=== PATIENT | female | born 1950 | race Caucasian/White ===

== ENCOUNTER 2021-08-08 01:17 | Emergency (ER) | payer MEDICARE, OTHER, SELFPAY ==
[2021-08-08] VITALS (15 sets, daily range): BP systolic 126–188; BP diastolic 58–105; PULSE 60–107; RESP 20–34; TEMP 36.1; O2SAT 88–97
--- NOTE | 2021-08-08 01:56 | DI.RAD.S_ITS ---
PROCEDURE: XR CHEST 1V INDICATIONS: chest pain TECHNIQUE: One view of the chest was acquired. COMPARISON: [facility], , CHEST 1 VIEW, 01/28/2015, 20:47. FINDINGS: Surgical changes and devices: Left pacemaker with right atrial and right ventricular leads. Lungs and pleura: Mild streaky opacity at the right lung base. Low lung volumes. No pleural effusions or pneumothorax. Mediastinum: Mediastinal contours appear similar to before. Asymmetric elevation of the right hemidiaphragm. Heart size is normal. Bones and chest wall: No suspicious bony lesions. Overlying soft tissues appear unremarkable. IMPRESSION: Streaky opacity at the right lung base. Favor atelectasis over pneumonia. No significant discrepancy with the overnight preliminary report. Dictated by: Jose Guadalupe Trent M.D. on 08/08/2021 at 7:39 Approved by: Jose Guadalupe Trent M.D. on 08/08/2021 at 7:40
[2021-08-08 02:07] LABS: Alanine Aminotransferase 26 IU/L (<35); Albumin 3.5 g/dL (3.5-5.0); Albumin Globulin Ratio 1.1 (1.0-2.8); Alkaline Phosphatase 402 U/L (38-126); Aspartate Aminotransferase 128 IU/L (14-36); BUN Creatinine Ratio 30.2 (6-22); Bilirubin Total 1.2 mg/dL (0.2-1.3); Blood Urea Nitrogen 19 mg/dL (7-17); Calcium 12.6 mg/dL (8.4-10.2); Carbon Dioxide 31 mmol/L (22-32); Chloride 99 mmol/L (98-107); Creatine Kinase < 20 U/L (30-135); Estimated Glomerular Filt Rate > 60.0 mL/min (>60); Globulin 3.1 g/dL (1.7-4.1); Glucose 118 mg/dL (80-110); HEMOLYSIS < 15 (0-50); Lipase 33 U/L (23-300); Sodium 135 mmol/L (137-145); Total Protein 6.6 g/dL (6.3-8.2)
[2021-08-08 02:09] LABS: Add Manual Diff / Slide Review NO; Basophils Absolute Auto 0 /uL (0-100); Basophils Percent Auto 0.4 % (0-2); Eosinophils Absolute Auto 0 /uL (0-450); Eosinophils Percent Auto 0.1 % (2-4); Hematocrit 38.1 % (36-46); Hemoglobin 12.3 g/dL (12.0-16.0); Lymphocytes Absolute Auto 1400 /uL (1100-4500); Lymphocytes Percent Auto 12.2 % (25-40); Mean Corpuscular HGB Conc 32.4 % (30-36); Mean Corpuscular Hemoglobin 29.3 PG (26-34); Mean Corpuscular Volume 90.5 fL (80-100); Monocytes Absolute Auto 1200 /uL (0-900); Monocytes Percent Auto 10.2 % (3-14); Neutrophils Absolute Auto 8900 /uL (1500-7000); Neutrophils Percent Auto 77.1 % (50-75); Platelet Count 215 X10^3/uL (150-400); Red Blood Cell Count 4.21 X10^6/uL (4.0-5.2); Red Cell Distribution Width 13.7 % (11.6-14.8); White Blood Cell Count 11.5 X10^3/uL (4.5-11.0)
[2021-08-08 02:11] LABS: D Dimer 1016 ng/mL (<230)
[2021-08-08 02:19] LABS: Troponin I 0.014 ng/mL (0.01-0.034)
[2021-08-08 02:24] LABS: NT-proBNP (BNP-Adult 18+) 1360 pg/mL (<125)
--- NOTE | 2021-08-08 02:27 | DI.CT.S_ITS ---
PROCEDURE: CT ANGIO CHEST PE PROTOCOL INDICATIONS: right sided pain + dimer TECHNIQUE: After the administration of intravenous contrast, 2 mm thick sections acquired from the pulmonary apices to the posterior costophrenic angles. 3-dimensional maximum intensity projection (MIP) coronal and sagittal reformats were then acquired through the thorax. For radiation dose reduction, the following was used: automated exposure control, adjustment of mA and/or kV according to patient size. COMPARISON: [facility], CT, CT ABDOMEN PELVIS W CON, 08/08/2021, 2:37. [facility], CR, XR CHEST 1V, 08/08/2021, 2:03. [facility], CT, CT ANGIO CHEST, 04/03/2020, 10:48. FINDINGS: Image quality: Excellent. Pulmonary arteries: Pulmonary arteries are normal in size, and demonstrate no intraluminal filling defects to suggest central pulmonary embolism. Lungs and pleura: Mild atelectasis at the right lung base. No pulmonary mass is identified. No pleural effusions or pneumothorax. Central and peripheral airways are patent. Mediastinum: Left pacemaker with right atrial and right ventricular leads.Heart size is normal, without pericardial effusion. Coronary artery calcifications. No mediastinal or hilar adenopathy. Thoracic aorta is normal in caliber and enhancement. Esophagus is normal in caliber, without hiatal hernia. Bones and chest wall: No suspicious bony lesions identified. Mild scoliosis. Ribs and thoracic spine appear intact throughout. Right thyroid calcification. No axillary or supraclavicular adenopathy. Abdomen: Numerous ill-defined hypodense lesions in the liver. Suspect metastatic disease. Trace free fluid adjacent to the liver. Please see separately dictated same day CT abdomen and pelvis. IMPRESSION: 1. No pulmonary embolism. 2. Mild atelectasis at the right lung base. 3. Numerous ill-defined hepatic lesion suspicious for metastatic disease. Please see separately dictated same day CT abdomen and pelvis. No significant discrepancy with the overnight preliminary interpretation. Dictated by: Jose Guadalupe Trent M.D. on 08/08/2021 at 7:41 Approved by: Jose Guadalupe Trent M.D. on 08/08/2021 at 7:49
--- NOTE | 2021-08-08 02:27 | DI.CT.S_ITS ---
PROCEDURE: CT ABDOMEN PELVIS W CON INDICATIONS: right upper quad pain TECHNIQUE: After the administration of IV contrast, axial sections were acquired from the lung bases to the pubic symphysis. Coronal and sagittal reformats were performed. For radiation dose reduction, the following was used: automated exposure control, adjustment of mA and/or kV according to patient size. COMPARISON: [facility], CT, CT ANGIO CHEST PE PROTOCOL, 08/08/2021, 2:37. FINDINGS: Image quality: Excellent. Lung bases: There is linear atelectasis in the lung bases. Heart: No significant findings. ABDOMEN: Liver: The liver is enlarged with innumerable hypoattenuating peripherally enhancing mass lesions demonstrated throughout the right and left lobes involving all segments. There are associated areas of confluence anteriorly within the right lobe. A sales representative aircraft mass posteriorly in the right hepatic dome within segment 7 on series 2, image 15 measures up to 3.7 x 3.3 cm in transverse dimension. The liver is nodular in contour suggestive of cirrhosis. Gallbladder: Gallbladder demonstrates no calcified gallstones or wall thickening. Biliary ducts: Unremarkable. Pancreas: Unremarkable. Spleen: There is a wedge-shaped hypodensity anteriorly within the spleen measuring up to 2.7 cm. Adrenal Glands: Unremarkable. Kidneys and Ureters: Kidneys demonstrate no hydronephrosis. Stomach and Bowel: Stomach, small bowel loops, and colon are normal in caliber and wall thickness. Colonic diverticulosis is present without acute diverticulitis. Peritoneum: There is a small amount of free fluid in the abdomen and pelvis. No free air. Ventral Wall: No hernia. Abdominal Nodes: There are enlarged lymph nodes within the upper abdomen including enlarged jeremi hepatis nodes measuring up to approximately 1.4 cm on series 2, image 34. A prominent portacaval node measures up to 0.9 cm in short axis on series 2, image 39. There also prominent left para-aortic nodes in the upper abdomen measuring up to 0.8 cm in short axis on series 2, image 37. Vessels: Aorta and inferior vena cava are normal in size. PELVIS: Pelvic Organs: Unremarkable. Bladder: Unremarkable. Pelvic Nodes: No enlarged lymph nodes. Miscellaneous: No inguinal hernias are seen. Bones: Unremarkable. Visualized osseous structures demonstrate no definite suspicious lesions. IMPRESSION: 1. Multiple peripherally enhancing hepatic mass lesions consistent with metastatic disease. The differential includes multifocal hepatocellular carcinoma but given the number of lesions, metastatic disease is favored. 2. Nodular hepatic contour suggestive of cirrhosis. 3. Small amount of free fluid in the abdomen and pelvis is nonspecific and may reflect ascites or reactive changes. 4. Wedge-shaped hypodensity anteriorly in the spleen may represent sequelae of a splenic infarct or a splenic mass. 5. Prominent upper abdominal lymph nodes including enlarged jeremi hepatis nodes are nonspecific but suspicious for metastatic disease. Concordant with preliminary interpretation. Dictated by: Deonte Yadav M.D. on 08/08/2021 at 9:39 Approved by: Deonte Yadav M.D. on 08/08/2021 at 9:51
[2021-08-08] MEDS: ONDANSETRON 4 MG/2 ML INJ IV (02:34)
[2021-08-08] MEDS: MORPHINE 2 MG/ML INJ IV (02:35)
[2021-08-08 02:54] LABS: COVID19 -Nasal RAPID Negative (Negative)
--- NOTE | 2021-08-08 03:03 | PC.NURSE ---
Her oxygen saturation dropped into the upper 80's,o2 via nasal cannula applied at 2 l flow and her sats increased to 95% after.
--- NOTE | 2021-08-08 04:27 | ED.ABDPAIN ---
HPI - Abdominal Pain General Chief Complaint: Abdominal Pain Stated Complaint: gallbladder pain x14 days Time Seen by Provider: 08/08/21 01:56 Source: patient Mode of arrival: Ambulatory Limitations: no limitations History of Present Illness HPI narrative: Patient is a 71-year-old female history of atrial fibrillation with pacemaker on Eliquis presenting today but 2 weeks ago rate I did pain. Pain seems to be getting worse. She is also having increasing shortness of breath with exertion, orthopnea and increasing swelling in her legs. She denies any fever or chills. No significant cough. No nausea or vomiting. The pain seems to be in her right ribs and right upper quadrant. She says it is just not getting any better. She denies any chest pain or palpitations. Related Data Home Medications Medication Instructions Recorded Confirmed CALCIUM/CHOLECALCIFEROL (CALCIUM 1 ctb PO QDAY #0 11/20/11 WITH D3 500MG/400UNITS) CONJUGATED ESTROGENS (PREMARIN) 0.3 mg PO QDAY #0 11/20/11 [CINNAMON + CHROMIUM] 1,000 mg PO BID #0 11/20/11 [VITAMIN B12] 1,000 mg PO QDAY #0 11/20/11 levothyroxine 100 mcg tablet 0.1 mg PO QDAY #0 11/20/11 (Synthroid) lisinopril 20 mg tablet 20 mg PO BID #0 11/20/11 loratadine 10 mg tablet (Claritin) 10 mg PO QDAY #0 11/20/11 acetaminophen 325 mg tablet 650 mg PO Q6HP PRN #0 02/02/17 metoprolol tartrate 25 mg tablet 25 mg PO QDAY #0 02/02/17 oxycodone-acetaminophen 5 mg-325 1 tab PO Q6HP PRN #0 02/02/17 mg tablet (Percocet) Previous Rx's Medication Instructions Recorded ibuprofen 600 mg tablet 600 mg PO Q6H PRN #60 tab 08/08/21 Allergies Allergy/AdvReac Type Severity Reaction Status Date / Time penicillin G Allergy Mild DIZZINESS/RASH-HAD Unverified 12/22/17 12:20 MANY YRS AGO morphine AdvReac Mild CAUSED N/V Unverified 12/22/17 12:20 Sulfa (Sulfonamide AdvReac Mild WASN'T Unverified 12/22/17 12:20 Antibiotics) EFFECTIVE EASILY NAUSEATED BY AdvReac Mild Uncoded 12/22/17 12:20 NARCOTICS LACTOSE INTOLERANT AdvReac Mild Uncoded 12/22/17 12:20 Review of Systems Review of Systems Narrative: GENERAL: Denies chills, fatigue, malaise, fever, sweats, travel HEENT: Denies sinus pain, ear pain, sore throat, difficulty swallowing, neck pain RESPIRATORY: See HPI CARDIOVASCULAR: Denies chest pain, palpitations, orthopnea, edema GASTROINTESTINAL: See HPI MUSCULOSKELETAL: Denies weakness, joint pain, or bony pain SKIN: No rash, no erythema, no pruritus NEUROLOGIC: Denies weakness, dizziness, headache, numbness, change in speech, confusion PSYCHIATRIC: No concerning psychosocial issues. 12 point review of systems is negative except for those stated above and HPI Patient History Social History Smoking Status: Former smoker Smoking Status: Former smoker alcohol intake frequency: a few times a month Substance Use Type: does not use Exam Initial Vital Signs Initial Vital Signs: Vital Signs Temperature 96.9 F L 08/08/21 01:20 Pulse Rate 85 08/08/21 01:20 Respiratory Rate 25 H 08/08/21 01:20 Blood Pressure 186/105 H 08/08/21 01:20 Pulse Oximetry 95 08/08/21 01:20 GENERAL: 71-year-old female appears quite weak also appears chronically ill in no acute distress. HEENT: Head atraumatic,EOMI, pupils reactive, face symmetric, moist mucous membranes CARDIOVASCULAR: Regular rate and rhythm without murmurs, rubs or gallops. RESPIRATORY: Breath sounds equal bilaterally, no wheezes rales or rhonchi. Slightly tender on right wrist ABDOMEN: Soft, tender epigastric area tender right upper quadrant negative [place] some EXTREMITIES: Normal range of motion, no clubbing . +2 pitting edema Neurovascularly intact NEUROLOGICAL: Alert and oriented x4.Normal gait and speech. SKIN: Warm, dry, no laceration, no petechiae, no rashes or lesions. Course Orders Ordered: ED Orders 08/08/21 01:35 Complete Blood Count AUTO DIFF Stat Comprehensive Metabolic Panel Stat DD [D Dimer] Stat Lipase Stat NT-proBNP (BNP-Adult 18+) Stat Troponin & CK Cardiac Panel Stat 08/08/21 01:56 XR chest 1V Stat EKG-12 Lead Stat 08/08/21 02:27 CT abdomen pelvis w con Stat CT angio chest PE protocol Stat 08/08/21 02:30 COVID19 -Nasal swab/Pre-Proc Stat Discontinued Medications Ketorolac Tromethamine (Ketorolac 30 Mg/Ml Vial) 15 mg IV NOW ONE Stop: 08/08/21 04:40 Last Admin: 08/08/21 04:52 Dose: 15 mg Documented by: CRISTOPHER Morphine Sulfate (Morphine 2 Mg/Ml Inj) 2 mg IV NOW ONE Stop: 08/08/21 02:29 Last Admin: 08/08/21 02:35 Dose: 2 mg Documented by: CRISTOPHER Ondansetron HCl (Ondansetron 4 Mg/2 Ml Inj) 4 mg IV NOW ONE Stop: 08/08/21 02:29 Last Admin: 08/08/21 02:34 Dose: 4 mg Documented by: CRISTOPHER Vital Signs Vital signs: Vital Signs - 8 hr 08/08/21 01:20 08/08/21 01:24 08/08/21 01:25 Temperature 96.9 F L Pulse Rate 85 107 H 94 H Respiratory Rate 25 H Blood Pressure 186/105 H 188/105 H Pulse Oximetry 95 95 96 08/08/21 01:30 08/08/21 01:31 08/08/21 02:00 Temperature Pulse Rate 89 90 92 H Respiratory Rate 29 H 34 H 33 H Blood Pressure 175/82 H Pulse Oximetry 96 96 94 08/08/21 02:01 08/08/21 02:30 08/08/21 02:31 Temperature Pulse Rate 95 H 87 87 Respiratory Rate 34 H 33 H 32 H Blood Pressure 175/94 H 169/70 H Pulse Oximetry 94 93 94 08/08/21 02:57 08/08/21 03:00 08/08/21 03:30 Temperature Pulse Rate 80 96 H 90 Respiratory Rate 33 H 32 H 26 H Blood Pressure 153/66 H 149/72 H Pulse Oximetry 89 L 88 L 95 08/08/21 03:31 08/08/21 04:00 08/08/21 04:30 Temperature Pulse Rate 89 78 60 Respiratory Rate 27 H 24 20 Blood Pressure 131/72 126/58 L 127/61 Pulse Oximetry 96 97 97 MDM - Abdominal Pain Lab Data Result diagrams: 08/08/21 01:35 08/08/21 01:35 Labs: Lab Results 11/08/08/21 08/08/21 Range/Units 01:35 01:35 01:35 WBC 11.5 H (4.5-11.0) X10^3/uL RBC 4.21 (4.0-5.2) X10^6/uL Hgb 12.3 (12.0-16.0) g/dL Hct 38.1 (36-46) % MCV 90.5 (80-100) fL MCH 29.3 (26-34) PG MCHC 32.4 (30-36) % RDW 13.7 (11.6-14.8) % Plt Count 215 (150-400) X10^3/uL Neut % (Auto) 77.1 H (50-75) % Lymph % (Auto) 12.2 L (25-40) % [place] % (Auto) 10.2 (3-14) % Eos % (Auto) 0.1 L (2-4) % Baso % (Auto) 0.4 (0-2) % Neut # (Auto) 8900 H (5640-7084) /uL Lymph # (Auto) 1400 (1074-8411) /uL [place] # (Auto) 1200 H (0-900) /uL Eos # (Auto) 0 (0-450) /uL Baso # (Auto) 0 (0-100) /uL D-Dimer 1016 H (<230) ng/mL Sodium 135 L (137-145) mmol/L Potassium 4.0 (3.4-5.1) mmol/L Chloride 99 (98-107) mmol/L Carbon Dioxide 31 (22-32) mmol/L BUN 19 H (7-17) mg/dL Creatinine 0.63 (0.52-1.04) mg/dL Estimated GFR > 60.0 (>60) mL/min BUN/Creatinine Ratio 30.2 H (6-22) Glucose 118 H (80-110) mg/dL Calcium 12.6 H (8.4-10.2) mg/dL Total Bilirubin 1.2 (0.2-1.3) mg/dL AST 128 H (14-36) IU/L ALT 26 (<35) IU/L Alkaline Phosphatase 402 H (38-126) U/L Total Creatine Kinase < 20 L (30-135) U/L CK-MB (CK-2) TNP CK-MB (CK-2) Rel Index TNP Troponin I 0.014 (0.01-0.034) ng/mL NT-Pro-B Natriuret Pep (<125) pg/mL Total Protein 6.6 (6.3-8.2) g/dL Albumin 3.5 (3.5-5.0) g/dL Globulin 3.1 (1.7-4.1) g/dL Albumin/Globulin Ratio 1.1 (1.0-2.8) Lipase 33 (23-300) U/L SARS-CoV-2 (PCR) (Negative) 08/08/21 08/08/21 Range/Units 01:35 02:30 WBC (4.5-11.0) X10^3/uL RBC (4.0-5.2) X10^6/uL Hgb (12.0-16.0) g/dL Hct (36-46) % MCV (80-100) fL MCH (26-34) PG MCHC (30-36) % RDW (11.6-14.8) % Plt Count (150-400) X10^3/uL Neut % (Auto) (50-75) % Lymph % (Auto) (25-40) % [place] % (Auto) (3-14) % Eos % (Auto) (2-4) % Baso % (Auto) (0-2) % Neut # (Auto) (8504-7679) /uL Lymph # (Auto) (4498-2129) /uL [place] # (Auto) (0-900) /uL Eos # (Auto) (0-450) /uL Baso # (Auto) (0-100) /uL D-Dimer (<230) ng/mL Sodium (137-145) mmol/L Potassium (3.4-5.1) mmol/L Chloride (98-107) mmol/L Carbon Dioxide (22-32) mmol/L BUN (7-17) mg/dL Creatinine (0.52-1.04) mg/dL Estimated GFR (>60) mL/min BUN/Creatinine Ratio (6-22) Glucose (80-110) mg/dL Calcium (8.4-10.2) mg/dL Total Bilirubin (0.2-1.3) mg/dL AST (14-36) IU/L ALT (<35) IU/L Alkaline Phosphatase (38-126) U/L Total Creatine Kinase (30-135) U/L CK-MB (CK-2) CK-MB (CK-2) Rel Index Troponin I (0.01-0.034) ng/mL NT-Pro-B Natriuret Pep 1360 H (<125) pg/mL Total Protein (6.3-8.2) g/dL Albumin (3.5-5.0) g/dL Globulin (1.7-4.1) g/dL Albumin/Globulin Ratio (1.0-2.8) Lipase (23-300) U/L SARS-CoV-2 (PCR) Negative (Negative) Imaging Data Chest x-ray: Radiologist's Impression: Preliminary report no acute cardiopulmonary disease CT scan - chest: Radiologist's Impression: Preliminary report: No pulmonary embolus. Liver cirrhosis with findings of portal hypertension. Multiple hypodense hepatic nodules with periportal lymphadenopathy. This constellation of findings is concerning for metastatic disease. [place] hepatic ascites. CT scan - abdomen/pelvis: Radiologist's Impression: Preliminary report: Liver cirrhosis with portal hypertension and small volume ascites. Periportal lymphadenopathy with multiple hepatic metastasis. Sigmoid diverticulosis. Hypodense splenic nodule. Differential considerations include metastasis, cyst ECG Data Interpretation: EKG 1. Paced rhythm rate 89 EKG 2. Paced rhythm rate [address] changes MDM Narrative Medical decision making narrative: Patient is unfortunately found to have multiple is metastasis in her liver. This is likely causing portal hypertension lower extremity edema and increasing shortness of breath. She is already taking Lasix 20 mg once daily at this time with elevated BNP and increased 3rd spacing will increase her Lasix for a few days. The no primary site of tumor is found. She actually has not had a colonoscopy she denies any bloody stools. However CT is quite concerning for metastasis. No pulmonary embolism is found she is also on Lasix which would make it unlikely. [place]. Discharge Plan Departure Patient Disposition: Home Clinical Impression: Liver mass Instructions: DI for Liver Cancer Activity Restrictions/Additional Instructions: Your testing today reveals that you have multiple areas in her liver concerning for cancer. You will need many more test done including blood work and possibly more imaging. Please call your primary care provider as soon as possible to get referral to Oncology. MEDICATION: Lasix 20 mg twice a day for 3 days Ibuprofen 600 mg every 6-8 hours if needed for [id number] pain Tylenol 650 mg every 4-6 hours if needed for [id number] pain (try to avoid this it does metabolized through the liver) FOLLOW UP: Call primary care provider 1st thing tomorrow or Wednesday to schedule follow-up appointment as soon as possible RETURN IF: Return to the emergency department if you should have any increased pain shortness of breath persistent nausea vomiting or any new or worsening symptoms. Prescriptions: New ibuprofen 600 mg tablet 600 mg PO Q6H PRN (Reason: pain) Qty: 60 0RF No Action levothyroxine [Synthroid] 100 MCG tablet 0.1 mg PO QDAY Qty: 0 0RF lisinopril 20 MG tablet 20 mg PO BID Qty: 0 0RF loratadine [Claritin] 10 MG tablet 10 mg PO QDAY Qty: 0 0RF CONJUGATED ESTROGENS (PREMARIN) 0.3 mg PO QDAY Qty: 0 0RF [CINNAMON + CHROMIUM] 1,000 mg PO BID Qty: 0 0RF CALCIUM/CHOLECALCIFEROL (CALCIUM WITH D3 500MG/400UNITS) 1 ctb PO QDAY Qty: 0 0RF [VITAMIN B12] 1,000 mg PO QDAY Qty: 0 0RF acetaminophen 325 MG tablet 650 mg PO Q6HP PRNQty: 0 0RF oxycodone-acetaminophen [Percocet] 5 MG/325 MG tablet 1 tab PO Q6HP PRNQty: 0 0RF metoprolol tartrate 25 MG tablet 25 mg PO QDAY Qty: 0 0RF Referrals: Clifford Buitrago MD [Primary Care Provider] -
[2021-08-08] MEDS: KETOROLAC 30 MG/ML VIAL 15 MG IV (04:52)
== END 2021-08-08 05:08 | disposition home or self-care (01) ==
PROVIDERS: Emergency Provider Emergency Medicine; PCP Internal Medicine
DX: R16.0 Hepatomegaly, not elsewhere classified (principal); R06.02 Shortness of breath; R10.9 Unspecified abdominal pain; R60.0 Localized edema; Z20.822 Contact with and (suspected) exposure to COVID-19
CPT/HCPCS: 36415; 71045; 71275; 74177; 80053; 82550; 83690; 83880; 84484; 85025; 85379; 87635; 93005; 96374; 96375; 99284; 99285; C9803; J1885; J2270; J2405; Q9967